=== PATIENT | female | born 1960 | race Caucasian/White ===

== ENCOUNTER → 2023-12-24 | Outpatient (CLI) | payer MEDICARE, OTHER ==
[2023-12-24 17:30] LABS: BASOPHILS ABSOLUTE AUTO 0.08 K/mm3 (0.00-0.23); BASOPHILS PERCENT AUTO 1 % (0-2); EOSINOPHILS ABSOLUTE AUTO 0.37 K/mm3 (0.00-0.68); EOSINOPHILS PERCENT AUTO 5 % (0-6); Hematocrit 44.6 % (33.0-51.0); Hemoglobin 15.1 g/dL (11.5-16.0); IMMATURE GRAN ABSOLUTE AUTO 0.01 K/mm3 (0.00-0.10); IMMATURE GRAN PERCENT AUTO 0 % (0-1); LYMPHOCYTES ABSOLUTE AUTO 1.82 K/mm3 (0.84-5.20); LYMPHOCYTES PERCENT AUTO 24 % (21-46); MONOCYTES ABSOLUTE AUTO 0.52 K/mm3 (0.16-1.47); MONOCYTES PERCENT AUTO 7 % (4-13); Mean Corpuscular HGB 31.7 pg (26.0-34.0); Mean Corpuscular HGB Conc 33.9 g/dL (31.5-36.5); Mean Corpuscular Volume 94 fL (80-100); Mean Platelet Volume 9.9 fL (9.1-12.4); NEUTROPHILS ABSOLUTE AUTO 4.81 K/mm3 (1.96-9.15); NEUTROPHILS PERCENT AUTO 63 % (41-73); Platelet Count 398 K/mm3 (150-400); RDW Coefficient Variation 12.1 % (11.7-14.2); RDW Standard Deviation 42.2 fL (35.1-46.3); Red Blood Cell Count 4.77 M/mm3 (3.80-5.20); White Blood Cell Count 7.61 K/mm3 (4.00-11.30)
[2023-12-24 22:13] LABS: Alanine Aminotransfer (ALT/SGP 30 U/L (12-78); Albumin, Blood 3.8 g/dL (3.4-5.0); Albumin/Globulin Ratio 1.1 (0.8-1.8); Alk Phos 114 U/L (50-136); Anion Gap 8 mmol/L (3-11); Aspartate Aminotrans (AST/SGOT 18 U/L (12-37); Bilirubin, Total 0.5 mg/dL (0.1-1.0); Blood Urea Nitrogen 20 mg/dL (8-24); Bun/Creatinine Ratio 26.1 (12.0-20.0); CHOL/HDL RATIO 2.6; CO2, Blood 26 mmol/L (21-32); Calcium, Blood 9.3 mg/dL (8.5-10.1); Chloride, Blood 112 mmol/L (98-108); Cholesterol 194 mg/dL (50-200); Creatinine, Blood 0.77 mg/dL (0.40-1.00); Globulin, Blood 3.5 g/dL (2.2-4.0); Glomerular Filtration Rate 86 (60-); Glucose, Blood 120 mg/dL (70-99); HDL Cholesterol 76 mg/dL (>39); LDL/HDL RATIO 1.3; Low Density Lipoprotein Chol 100 mg/dL (0-110); Potassium, Blood 4.6 mmol/L (3.5-5.5); Sodium, Blood 141 mmol/L (136-145); Total Protein, Blood 7.3 g/dL (6.4-8.2); Triglycerides 89 mg/dL (30-160); Very Low Density Lipoprot Chol 17 mg/dL (6-32)
== END | disposition home or self-care (01) ==
LOC: LAB SHORT 15:18 → LAB 15:18
PROVIDERS: Family Medicine
DX: E78.2 Mixed hyperlipidemia (principal); E03.9 Hypothyroidism, unspecified; I10 Essential (primary) hypertension
CPT/HCPCS: 80053; 80061; 84443; 85025

== ENCOUNTER → 2025-01-01 | Outpatient (CLI) | payer MEDICARE, OTHER ==
[2025-01-01 17:35] LABS: BASOPHILS ABSOLUTE AUTO 0.07 K/mm3 (0.00-0.23); BASOPHILS PERCENT AUTO 1 % (0-2); EOSINOPHILS ABSOLUTE AUTO 0.24 K/mm3 (0.00-0.68); EOSINOPHILS PERCENT AUTO 3 % (0-6); Hematocrit 47.5 % (33.0-51.0); Hemoglobin 15.5 g/dL (11.5-16.0); IMMATURE GRAN ABSOLUTE AUTO 0.02 K/mm3 (0.00-0.10); IMMATURE GRAN PERCENT AUTO 0 % (0-1); LYMPHOCYTES PERCENT AUTO 23 % (21-46); MONOCYTES PERCENT AUTO 7 % (4-13); Mean Corpuscular HGB 30.9 pg (26.0-34.0); Mean Corpuscular HGB Conc 32.6 g/dL (31.5-36.5); Mean Corpuscular Volume 95 fL (80-100); Mean Platelet Volume 10.5 fL (9.1-12.4); NEUTROPHILS ABSOLUTE AUTO 4.84 K/mm3 (1.96-9.15); NEUTROPHILS PERCENT AUTO 66 % (41-73); Platelet Count 384 K/mm3 (150-400); RDW Coefficient Variation 12.8 % (11.7-14.2); RDW Standard Deviation 44.3 fL (35.1-46.3); Red Blood Cell Count 5.02 M/mm3 (3.80-5.20); White Blood Cell Count 7.37 K/mm3 (4.00-11.30)
[2025-01-01 19:08] LABS: Alanine Aminotransfer (ALT/SGP 32 U/L (12-78); Albumin, Blood 3.9 g/dL (3.4-5.0); Albumin/Globulin Ratio 1.1 (0.8-1.8); Alk Phos 152 U/L (50-136); Anion Gap 9 mmol/L (3-11); Aspartate Aminotrans (AST/SGOT 17 U/L (12-37); Bilirubin, Total 0.5 mg/dL (0.1-1.0); Blood Urea Nitrogen 17 mg/dL (8-24); Bun/Creatinine Ratio 20.9 (12.0-20.0); CHOL/HDL RATIO 2.5; CO2, Blood 27 mmol/L (21-32); Chloride, Blood 106 mmol/L (98-108); Cholesterol 187 mg/dL (50-200); Creatinine, Blood 0.81 mg/dL (0.40-1.00); Globulin, Blood 3.7 g/dL (2.2-4.0); Glomerular Filtration Rate 80 (60-); Glucose, Blood 119 mg/dL (70-99); HDL Cholesterol 74 mg/dL (>39); LDL/HDL RATIO 1.2; Low Density Lipoprotein Chol 92 mg/dL (0-110); Potassium, Blood 4.2 mmol/L (3.5-5.5); Sodium, Blood 138 mmol/L (136-145); Total Protein, Blood 7.6 g/dL (6.4-8.2); Triglycerides 104 mg/dL (30-160); Very Low Density Lipoprot Chol 20 mg/dL (6-32)
== END ==
LOC: LAB 12:00 → LAB SHORT 12:00
PROVIDERS: Physician Assistant
DX: Z51.81 Encounter for therapeutic drug level monitoring (principal); Z79.899 Other long term (current) drug therapy
CPT/HCPCS: 80053; 80061; 82306; 83036; 84443; 85025

== ENCOUNTER 2025-05-30 10:38 | Emergency (ER) | payer MEDICARE, OTHER ==
[~2025-05-30] VITALS: Ht 160 cm; Wt 90.7 kg
[2025-05-30] MEDS ORDERED: OxyCODONE 7.5 mg/Acetam 325 mg TABLET PO ONE (10:45)
[2025-05-30] MEDS ORDERED: Ondansetron HCl 2 MG / ML 2ML Vial IV ONE (12:45)
[2025-05-30] MEDS ORDERED: FentaNYL Citrate 50 MCG/ML 2 ML Injection IV ONE (12:45)
[2025-05-30 14:00] VITALS: BP 135/80
[2025-05-30] MEDS ORDERED: OXYACE7.5T PO (14:11)
== END 2025-05-30 14:45 | disposition home or self-care (01) ==
LOC: ER 10:38
DX: S52.571A Other intraarticular fracture of lower end of right radius, initial encounter for closed fracture (principal); W18.30XA Fall on same level, unspecified, initial encounter
CPT/HCPCS: 73110; A9270; J2405; J3010

== ENCOUNTER 2025-06-04 07:18 | Day surgery (SDC) | payer OTHER, MEDICARE ==
[2025-06-04] VITALS (11 sets, daily range): BP systolic 120–152; BP diastolic 73–92
[~2025-06-04] VITALS: Ht 162.6 cm; Wt 98.7 kg
[~2025-06-04 07:18] MED LIST: ALBU90OI INH; ALLEGRA ALLERG180 MG PO; AMLO5 PO; CeFAZolin Sodium 2,000 MG in NS 100 ML IV SCH; KOURZEQ5 GM TOP; LEVSOD75 PO; LISI20 PO; LOVA40 PO; OXYACE7.5T PO; THERA-D2000 UNIT PO
[2025-06-04] MEDS ORDERED: ACET500 PO (07:39)
[2025-06-04] MEDS ORDERED: ASPI325 PO (07:40)
[2025-06-04] MEDS ORDERED: BISA5EC PO (07:41)
[2025-06-04] MEDS ORDERED: FentaNYL Citrate 50 MCG/ML 2 ML Injection ONE (07:45)
[2025-06-04] MEDS ORDERED: Midazolam HCl 1MG / ML 2ML Vial ONE (07:45)
[2025-06-04] MEDS ORDERED: Bupivacaine 0.5% HCl 5 MG/ML 30MLVIAL ONE (07:48)
[2025-06-04] MEDS ORDERED: Bupivacaine 0.5% W/EPI 1:200000 SDV 30 ML Vial ONE (08:04)
--- NOTE | 2025-06-04 08:05 | NUR ---
Ambulatory in Day Surgery History, Chart, Medications and Allergies reviewed before start of procedure. Pre-Op teaching done. Pt verbalizes understanding. Patient States Post-Procedure ride home has been arranged.
[2025-06-04] MEDS ORDERED: Metoclopramide HCl 5MG / ML 2ML Vial ONE (08:08)
--- NOTE | 2025-06-04 08:29 | NUR ---
[id number] RIGHT AXILLARY NERVE BLOCK PLACED BY DR ARNETT. TIMEOUT COMPLETED. PT TOLERATED PROCEDURE.
[2025-06-04] MEDS ORDERED: Citric Acid/Sodium Citrate 30 ML BTL PO SCH (08:35)
[2025-06-04] MEDS ORDERED: FentaNYL Citrate 50 MCG/ML 2 ML Injection IV PRN ×2 (09:55)
[2025-06-04] MEDS ORDERED: HYDROmorphone HCl/Pf 1MG SYR IV PRN ×2 (09:55→10:00)
[2025-06-04] MEDS ORDERED: Ondansetron HCl 2 MG / ML 2ML Vial IV PRN (09:55)
[2025-06-04] MEDS ORDERED: Sugammadex Sodium 200 MG/2ML SDV (100 MG/ML) ONE (10:15)
[2025-06-04] MEDS ORDERED: Dexamethasone Sod Phos 10 MG/ML 1ML VIAL ONE (10:15)
[2025-06-04] MEDS ORDERED: Ondansetron HCl 2 MG / ML 2ML Vial ONE (10:15)
--- NOTE | 2025-06-04 11:41 | NUR ---
1050 RECEIVED PT FROM PACU AWAKE AND REQUESTING TO USE BATHROOM ALFONSO. ASSISTED PT VIA GURNY AND SHORT WALK, STEADY ON FEET, VOID WITHOUT DIFFICULTY. RT FOREARM SPLINT AND NUNU WRAP D&I. WIGGLES FINGERS GOOD CAP REFIL.
--- NOTE | 2025-06-04 12:10 | NUR ---
Discharge instructions reviewed with patient. Patient verbalizes understanding. Copy given to patient to take home. PT RIDE HOME PRESENT FOR INSTRUCTIONS. PT DRESSED WITH ASSISTANCE. SLING ON. PT ABLE TO WIGGLE FINGERS, CAP REFILL LESS THAN THREE SECONDS. MINIMAL SWELLING TO FINGERS. VSS. PT O2 SATS 94% ROOM AIR AND ABLE TO CLEAR THROAT, DEEP BREATH AND COUGH. PT STATES SHE DOES HAVE AN INHALER AT HOME, ENCOURAGED HER TO USE THAT. Discharged via wheelchair to private car for ride home.
== END 2025-06-04 12:15 | disposition home or self-care (01) ==
LOC: ORSCMMR 07:18 → ORD 07:18 → ORSCMMR 07:20 → ORD 07:20 → ORSCMMR 12:15 → ORD 12:15
PROVIDERS: Orthopaedic Surgery
PROC: 0PSH04Z Reposition Right Radius with Internal Fixation Device, Open Approach (ICD-10-PCS; principal; 2025-06-04 08:30)
DX: S52.571A Other intraarticular fracture of lower end of right radius, initial encounter for closed fracture (principal); W01.0XXA Fall on same level from slipping, tripping and stumbling without subsequent striking against object, initial encounter; I10 Essential (primary) hypertension; J45.909 Unspecified asthma, uncomplicated; E78.5 Hyperlipidemia, unspecified; E03.9 Hypothyroidism, unspecified; Z68.37 Body mass index [BMI] 37.0-37.9, adult; Z79.899 Other long term (current) drug therapy
CPT/HCPCS: A9270; C1713; J0690; J1100; J2250; J2405; J2704; J2765; J3010; J7120